=== PATIENT | male | born 1965 | race Two or more races ===

== ENCOUNTER 2021-07-23 15:46 | Emergency (ER) | payer BC ==
[~2021-07-23] VITALS: Ht 154.9 cm; Wt 63.6 kg
[2021-07-23 16:18] VITALS: BP 143/95
== END 2021-07-23 18:06 | disposition home or self-care (01) ==
LOC: ER 15:48
DX: M25.511 Pain in right shoulder (principal); R07.81 Pleurodynia
CPT/HCPCS: 99282